=== PATIENT | female | born 1975 | race Caucasian/White ===

== ENCOUNTER 2016-11-14 09:15 | Emergency (ER) | payer OTHER ==
[~2016-11-14] VITALS: Ht 175.3 cm; Wt 101.2 kg
[2016-11-14 09:20] VITALS: BP 162/109
[2016-11-14] MEDS ORDERED: KETOROLAC TROMETHAMINE 60 MG/2 ML INJ. IM ONE (09:45)
[2016-11-14] MEDS ORDERED: CYCL10TA2 PO (09:50)
[2016-11-14] MEDS ORDERED: METH4TAB2 PO (09:50)
--- NOTE | 2016-11-14 09:51 | PHYS DOC ---
Past Medical History Past Medical History: Hypertension Past Surgical History: No Surgical History Alcohol Use: None Drug Use: None Adult General Chief Complaint Chief Complaint: HIP PAIN HPI HPI Patient is a 41 year old female who presents with left hip pain. She states that the pain began approximately 1 month ago and has gradually worsened over time. She states the pain as sharp and will shoot from her back into her left hip and occasionally down her leg. She also stated that when she is experiencing severe pain no matter how she moves she cannot get comfortable. She denies any injury, steroid or alcohol intake. She did say that she does have to do some lifting at work. Movement and walking do make the pain worse although it does hurt even at rest. Review of Systems Review of Systems Constitutional: Denies fever or chills [] Respiratory: Denies cough or shortness of breath [] Cardiovascular: No additional information not addressed in HPI [] GI: Denies abdominal pain, nausea, vomiting, bloody stools or diarrhea [] : Denies dysuria or hematuria [] Musculoskeletal: See history of present illness Integument: Denies rash or skin lesions [] Neurologic: Denies headache, focal weakness or sensory changes [] Endocrine: Denies polyuria or polydipsia [] Current Medications Current Medications Current Medications Medications (Trade) Dose Ordered Sig/Benjamin Start Time Stop Time Status Last Admin Dose Admin Ketorolac Tromethamine (Toradol Im) 60 mg 1X ONCE 11/14/16 09:45 11/14/16 09:46 [place] Allergies Allergies Allergies Coded Allergies Type Severity Reaction Last Updated Verified No Known Drug Allergies 11/14/16 No Physical Exam Physical Exam Constitutional: Well developed, well nourished, no acute distress, non-toxic appearance. [] Neck: Normal range of motion, no tenderness, supple, no stridor. [] Cardiovascular:Heart rate regular rhythm, no murmur [] Lungs & Thorax: Bilateral breath sounds clear to auscultation [] Abdomen: Bowel sounds normal, soft, no tenderness, no masses, no pulsatile masses. [] Skin: Warm, dry, no erythema, no rash. [] Back: Tenderness with palpation over SI joints continuing down her sciatic nerve , Extremities: No tenderness, no cyanosis, no clubbing, ROM intact, no edema. Pushes and pulls intact, no foot drop noted Neurologic: Alert and oriented X 3, normal motor function, normal sensory function, no focal deficits noted. [] Psychologic: Affect normal, judgement normal, mood normal. [] Current Patient Data Vital Signs Vital Signs Date Time Temp Pulse Resp B/P (MAP) Pulse Ox O2 Delivery O2 Flow Rate FiO2 11/14/16 09:20 98.4 64 22 98 Room Air 98.4 EKG EKG [] Radiology/Procedures Radiology/Procedures [] Course & Med Decision Making Course & Med Decision Making Pertinent Labs and Imaging studies reviewed. (See chart for details) [] 1. Sciatica Dragon Disclaimer Dragon Disclaimer This electronic medical record was generated, in whole or in part, using a voice recognition dictation system. Departure Departure Impression: Primary Impression: Sciatica Disposition: 01 HOME, SELF-CARE Condition: STABLE Patient Instructions: Sciatica Additional Instructions: Please follow up with your PCP in 1 week for further evaluation of your hip pain or return to the ED if worsening. Scripts Cyclobenzaprine Hcl (CYCLOBENZAPRINE HCL) 10 Mg Tablet 1 TAB PO QHS, #30 TAB Prov: CLARISSA JOHNSON APRN 11/14/16 Methylprednisolone (MEDROL) 4 Mg Tab.ds.pk 1 PKG PO UD, #1 PKG Prov: CLARISSA JOHNSON APRN 11/14/16 CLARISSA JOHNSON APRN Nov 14, 2016 09:51
== END 2016-11-14 10:00 | disposition home or self-care (01) ==
LOC: ER 09:15
DX: M54.30 Sciatica, unspecified side (principal); M79.605 Pain in left leg; I10 Essential (primary) hypertension
CPT/HCPCS: 96372; 99283; J1885

== ENCOUNTER 2017-05-22 11:00 | Emergency (ER) | payer SELFPAY, OTHER ==
[2017-05-22] MEDS: HYDROcodone/APAP 5/325MG 1 TAB TABLET PO (12:14)
== END 2017-05-22 12:17 | disposition home or self-care (01) ==
LOC: ER 11:00
DX: J06.9 Acute upper respiratory infection, unspecified (principal); I10 Essential (primary) hypertension
CPT/HCPCS: 99283

== ENCOUNTER 2018-01-04 09:12 | Emergency (ER) | payer SELFPAY ==
[~2018-01-04] VITALS: Ht 175.3 cm; Wt 99.8 kg
[~2018-01-04 09:12] MED LIST: CYCL10TA2 PO; METH4TAB2 PO; PRED20TA PO
[2018-01-04] MEDS: HYDROcodone/APAP 5/325MG 1 TAB TABLET PO ONE (10:36)
[2018-01-04] MEDS ORDERED: GABA-585 PO (10:44)
[2018-01-04] MEDS ORDERED: HYDR-971 PO (10:44)
--- NOTE | 2018-01-04 10:48 | RAD ---
Left lower extremity venous doppler ultrasound Indication:LT THIGH PAIN Technique: Color Doppler, grayscale, and spectral waveform analysis is used to evaluate the left femoral and popliteal veins. Findings: No evidence of deep venous thrombosis. Normal response to augmentation, normal compressibility and normal phasicity is demonstrated. Visualized calf veins are patent. Impression: Negative for deep venous thrombosis Electronically signed by: Tino Torres MD (01/04/2018 10:45 AM) [facility]
[2018-01-04 10:51] VITALS: BP 170/102
--- NOTE | 2018-01-04 11:18 | PHYS DOC ---
Past Medical History Past Medical History: Hypertension Past Surgical History: No Surgical History Alcohol Use: None Drug Use: None Adult General Chief Complaint Chief Complaint: LOWER EXT PAIN HPI HPI Patient is a 42 year old female presents with left thigh pain for 6 weeks described as sharp severe anterior thigh that radiates to the bee area using [id number] agents with no relief. Mild back pain no injury no previous medical history she does not have insurance she doesn't have a doctor she denies any previous injury or history at all. Review of Systems Review of Systems Constitutional: Denies fever or chills [] Eyes: Denies change in visual acuity, redness, or eye pain [] HENT: Denies nasal congestion or sore throat [] Respiratory: Denies cough or shortness of breath [] Cardiovascular: No additional information not addressed in HPI [] GI: Denies abdominal pain, nausea, vomiting, bloody stools or diarrhea [] Integument: Denies rash or skin lesions [] Neurologic: Negative for numbness distally or weakness All other systems were reviewed and found to be within normal limits, except as documented in this note. Current Medications Current Medications Current Medications Medications (Trade) Dose Ordered Sig/Benjamin Start Time Stop Time Status Last Admin Dose Admin Acetaminophen/ Hydrocodone Bitart (Lortab 5/325) 2 tab 1X ONCE 01/04/18 10:15 01/04/18 10:16 DC 01/04/18 10:36 2 TAB Allergies Allergies Allergies Coded Allergies Type Severity Reaction Last Updated Verified No Known Drug Allergies 11/14/16 No Physical Exam Physical Exam Constitutional: Well developed, well nourished, no acute distress, non-toxic appearance. [] HENT: Normocephalic, atraumatic, bilateral external ears normal, oropharynx moist, no oral exudates, nose normal. [] Eyes: PERRLA, EOMI, conjunctiva normal, no discharge. [] Pulmonary: Normal respiratory effort no increased work of breathing no obvious chest wall trauma Abdomen: Bowel sounds normal, soft, no tenderness, no masses, no pulsatile masses. [] S Extremities: There is tenderness to palpation over the left anterior thigh. There is no calf tenderness to palpation distal pulses intact sensation and strength is intact distally. d Neurologic: Alert and oriented X 3, normal motor function, normal sensory function, no focal deficits noted. [] Psychologic: Affect normal, judgement normal, mood normal. [] Current Patient Data Vital Signs Vital Signs Date Time Temp Pulse Resp B/P (MAP) Pulse Ox O2 Delivery O2 Flow Rate FiO2 01/04/18 10:51 62 16 170/102 (124) 99 Room Air 01/04/18 09:35 97.7 97.7 EKG EKG [] Radiology/Procedures Radiology/Procedures [] Impressions: Findings: No evidence of deep venous thrombosis. Normal response to augmentation, normal compressibility and normal phasicity is demonstrated. Visualized calf veins are patent. Impression: Negative for deep venous thrombosis Electronically signed by: Tino Torres MD (01/04/2018 10:45 AM) [facility] DICTATED and SIGNED BY: TINO TORRES MD DATE: 01/04/18 1045 Course & Med Decision Making Course & Med Decision Making Pertinent Labs and Imaging studies reviewed. (See chart for details) []42-year-old female presenting with left anterior thigh pain for 6 weeks. Consider DVT an ultrasound was negative she has a good pedal pulse. She denies any skin findings. At this point time radiculopathy seems like the most likely diagnosis she was given treatment for this. We reviewed the precautions about these medications and the importance of obtaining primary care follow-up for continuing management of her pain. Dragon Disclaimer Dragon Disclaimer This electronic medical record was generated, in whole or in part, using a voice recognition dictation system. Departure Departure Impression: Primary Impression: Elevated blood pressure reading Additional Impression: Leg pain Disposition: HOME, SELF-CARE Condition: STABLE Patient Instructions: Radicular Pain Additional Instructions: Blood pressure check in one month Scripts Gabapentin (GABAPENTIN) 100 Mg Capsule 100 MG PO TID, #30 CAP Prov: RAFIQ KIRAN MD 01/04/18 Hydrocodone/Apap 5-325 (NORCO 5-325 TABLET) 1 Each Tablet 1-2 EACH PO PRN Q6HRS PRN for PAIN, #15 as needed for pain Prov: RAFIQ KIRAN MD 01/04/18 Problem Qualifiers RAFIQ KIRAN MD Jan 04, 2018 11:18
== END 2018-01-04 10:51 | disposition home or self-care (01) ==
LOC: ER 09:12
DX: M79.652 Pain in left thigh (principal); I10 Essential (primary) hypertension; M54.9 Dorsalgia, unspecified
CPT/HCPCS: 93971; 99284